=== PATIENT | male | born 1975 | race Caucasian/White ===

== ENCOUNTER 2020-09-30 09:34 | Emergency (ER) | payer BC, OTHER ==
--- NOTE | 2020-09-30 09:38 | EDM.PDOC ---
ED HPI GENERAL MEDICAL PROBLEM - General Stated Complaint: [id number] SOMETHING WRONG WITH STOMACH Time Seen by Provider: 09/30/20 10:00 Source of Information: Reports: Patient, RN, RN Notes Reviewed History Limitations: Reports: No Limitations - History of Present Illness INITIAL COMMENTS - FREE TEXT/NARRATIVE: Chelle is a 45 y/o male who presents to the ED via personal vehicle with complaints of LLQ abdominal pain. The patient reports his pain began abruptly approximately 45 minutes ago and has maintained in severity over that time. He characterizes the pain as a burning/stabbing that is localized to the LLQ. He states he experienced pain similar to this one a plane approximately one year ago; it resolved after one hour and he did not receive evaluation after the pain. He denies fever, shaking chills, nausea, vomiting, constipation, diarrhea, dysuria, or hematuria. He reports the pain increases with deep breaths. He has taken no medications for his symptoms. The patient attests to drinking alcohol and chewing tobacco; he denies recreational drug use. The patient reports he underwent a colonoscopy about four years ago for rectal bleeding (hemorrhoids) and chronic diarrhea; polyps were removed but no pathology was noted. left abdomen Pain Score (Numeric/FACES): 9 - Related Data Allergies Allergy/AdvReac Type Severity Reaction Status Date / Time No Known Allergies Allergy Verified 09/30/20 10:17 Home Meds: Home Meds . [No Known Home Meds] 09/30/20 [History] ED ROS GENERAL - Review of Systems Review Of Systems: Comprehensive ROS is negative, except as noted in HPI. ED EXAM, GI/ABD - Physical Exam Exam: See Below Exam Limited By: No Limitations General Appearance: Alert, Moderate Distress (Pain to LLQ), Thin Eyes: Bilateral: Normal Appearance, EOMI Ears: Normal External Exam, Hearing Grossly Normal Nose: Normal Inspection, Normal Mucosa, No Blood Throat/Mouth: Normal Inspection, Normal Oropharynx, Normal Voice, No Airway Compromise Head: Atraumatic, Normocephalic Neck: Normal Inspection, Supple, Non-Tender, Full Range of Motion Respiratory/Chest: No Respiratory Distress, Lungs Clear, Normal Breath Sounds, No Accessory Muscle Use, Chest Non-Tender Cardiovascular: Normal Peripheral Pulses, Regular Rate, Rhythm, No Edema, No Gallop, No JVD, No Murmur, No Rub GI/Abdominal Exam: Soft, No Distention, No Abnormal Bruit, No Mass, Pelvis Stable, Guarding, Tender (To palpation of all quadrants, but more to LLQ), Abnormal Bowel Sounds (Hyperactive bowel sounds). No: Rigid, Rebound (Male) Exam: Deferred Rectal (Males) Exam: Deferred Back Exam: Normal Inspection, Full Range of Motion. No: CVA Tenderness (L), CVA Tenderness (R) Extremities: Normal Inspection, Normal Range of Motion, Non-Tender, Normal Capillary Refill, No Pedal Edema Neurological: Alert, Oriented, CN II-XII Intact, Normal Cognition, Normal Gait, No Motor/Sensory Deficits Psychiatric: Anxious. No: Tearful Skin Exam: Warm, Dry, Intact, Normal Color, No Rash. No: Cyanosis, Diaphoretic, Ecchymosis, Erythema, Jaundice, Mottled, Pallor, Petechiae Course - Vital Signs Last Recorded V/S: Last Vital Signs Temp 96.3 F L 09/30/20 09:42 Pulse 98 09/30/20 09:42 Resp 20 09/30/20 09:42 BP 163/110 H 09/30/20 09:42 Pulse Ox 100 09/30/20 09:42 - Orders/Labs/Meds Labs: Laboratory Tests 09/30/20 09/30/20 09/30/20 Range/Units 09:54 09:54 09:54 WBC 8.4 (5.0-10.0) 10^3/uL RBC 5.80 (4.6-6.2) 10^6/uL Hgb 17.1 (14.0-18.0) g/dL Hct 49.9 (40.0-54.0) % MCV 86.0 (80-100) fL MCH 29.5 (27.0-34.0) pg MCHC 34.3 (33.0-35.0) g/dL Plt Count 302 (150-450) 10^3/uL Neut % (Auto) 57.8 (42.2-75.2) % Lymph % (Auto) 30.9 (20.5-50.1) % [place] % (Auto) 8.4 H (2-8) % Eos % (Auto) 2.3 (1.0-3.0) % Baso % (Auto) 0.6 (0.0-1.0) % Sodium 148 H (136-145) mmol/L Potassium 3.8 (3.5-5.1) mmol/L Chloride 107 (98-107) mmol/L Carbon Dioxide 27 (21-32) mmol/L Anion Gap 17.8 H (7-13) mEq/L BUN 11 (7-18) mg/dL Creatinine 0.96 (0.70-1.30) mg/dL Est Cr Clr Drug Dosing 98.19 mL/min Estimated GFR (MDRD) > 60 BUN/Creatinine Ratio 11.5 (No establ ref range) Glucose 117 H (70-99) mg/dL Lactic Acid 2.1 H* (0.4-2.0) mmol/L Calcium 8.8 (8.5-10.1) mg/dL Total Bilirubin 1.0 (0.2-1.0) mg/dL AST 19 (15-37) U/L ALT 27 (16-63) U/L Alkaline Phosphatase 61 (46-116) U/L C-Reactive Protein < 0.2 (0.0-0.9) mg/dL Total Protein 7.2 (6.4-8.2) g/dL Albumin 3.8 (3.4-5.0) g/dL Globulin 3.4 Albumin/Globulin Ratio 1.1 Amylase 20 L (25-115) U/L Lipase 89 (73-393) U/L Urine Color (YELLOW) Urine Appearance (CLEAR) Urine pH (5.0-9.0) Ur Specific [place] (1.005-1.030) Urine Protein (NEGATIVE) Urine Glucose (UA) (NEGATIVE) Urine Ketones (NEGATIVE) Urine Occult Blood (NEGATIVE) Urine Nitrite (NEGATIVE) Urine Bilirubin (NEGATIVE) Urine Urobilinogen (0.2-1.0) mg/dL Ur Leukocyte Esterase (NEGATIVE) U Hyaline Cast (Auto) Urine RBC (0-5) /HPF Urine WBC (0-5/HPF) /HPF Ur Epithelial Cells (NOT SEEN) /HPF Urine Mucus (NOT SEEN) /LPF Urine Opiates Screen (NEGATIVE) Ur Oxycodone Screen (NEGATIVE) Urine Methadone Screen (NEGATIVE) Ur Barbiturates Screen (NEGATIVE) U Tricyclic Antidepress (NEGATIVE) Ur Phencyclidine Scrn (NEGATIVE) Ur Amphetamine Screen (NEGATIVE) U Methamphetamines Scrn (NEGATIVE) Urine MDMA Screen (NEGATIVE) U Benzodiazepines Scrn (NEGATIVE) Urine Cocaine Screen (NEGATIVE) U Marijuana (THC) Screen (NEGATIVE) Ethyl Alcohol 20 (0) mg/dL 09/30/20 09/30/20 Range/Units 10:50 10:50 WBC (5.0-10.0) 10^3/uL RBC (4.6-6.2) 10^6/uL Hgb (14.0-18.0) g/dL Hct (40.0-54.0) % MCV (80-100) fL MCH (27.0-34.0) pg MCHC (33.0-35.0) g/dL Plt Count (150-450) 10^3/uL Neut % (Auto) (42.2-75.2) % Lymph % (Auto) (20.5-50.1) % [place] % (Auto) (2-8) % Eos % (Auto) (1.0-3.0) % Baso % (Auto) (0.0-1.0) % Sodium (136-145) mmol/L Potassium (3.5-5.1) mmol/L Chloride (98-107) mmol/L Carbon Dioxide (21-32) mmol/L Anion Gap (7-13) mEq/L BUN (7-18) mg/dL Creatinine (0.70-1.30) mg/dL Est Cr Clr Drug Dosing mL/min Estimated GFR (MDRD) BUN/Creatinine Ratio (No establ ref range) Glucose (70-99) mg/dL Lactic Acid (0.4-2.0) mmol/L Calcium (8.5-10.1) mg/dL Total Bilirubin (0.2-1.0) mg/dL AST (15-37) U/L ALT (16-63) U/L Alkaline Phosphatase (46-116) U/L C-Reactive Protein (0.0-0.9) mg/dL Total Protein (6.4-8.2) g/dL Albumin (3.4-5.0) g/dL Globulin Albumin/Globulin Ratio Amylase (25-115) U/L Lipase (73-393) U/L Urine Color Yellow (YELLOW) Urine Appearance Clear (CLEAR) Urine pH 6.0 (5.0-9.0) Ur Specific [place] 1.025 (1.005-1.030) Urine Protein Negative (NEGATIVE) Urine Glucose (UA) Negative (NEGATIVE) Urine Ketones Negative (NEGATIVE) Urine Occult Blood Moderate H (NEGATIVE) Urine Nitrite Negative (NEGATIVE) Urine Bilirubin Negative (NEGATIVE) Urine Urobilinogen 0.2 (0.2-1.0) mg/dL Ur Leukocyte Esterase Negative (NEGATIVE) U Hyaline Cast (Auto) Few Urine RBC 20-30 H (0-5) /HPF Urine WBC 0-5 (0-5/HPF) /HPF Ur Epithelial Cells Rare (NOT SEEN) /HPF Urine Mucus Moderate H (NOT SEEN) /LPF Urine Opiates Screen Negative (NEGATIVE) Ur Oxycodone Screen Negative (NEGATIVE) Urine Methadone Screen Negative (NEGATIVE) Ur Barbiturates Screen Negative (NEGATIVE) U Tricyclic Antidepress Negative (NEGATIVE) Ur Phencyclidine Scrn Negative (NEGATIVE) Ur Amphetamine Screen Negative (NEGATIVE) U Methamphetamines Scrn Negative (NEGATIVE) Urine MDMA Screen Negative (NEGATIVE) U Benzodiazepines Scrn Negative (NEGATIVE) Urine Cocaine Screen Negative (NEGATIVE) U Marijuana (THC) Screen Negative (NEGATIVE) Ethyl Alcohol (0) mg/dL Meds: Medications Discontinued Medications Generic Name Dose Route Start Last Admin Trade Name Freq PRN Reason Stop Dose Admin Hydromorphone HCl 1 mg 09/30/20 09:49 09/30/20 10:01 Hydromorphone 1 Mg/Ml Syringe IVPUSH 09/30/20 09:50 1 mg ONETIME ONE Administration Lactated Ringer's 1,000 mls @ 999 mls/hr 09/30/20 09:49 09/30/20 11:30 Ringers, Lactated IV 09/30/20 10:49 Infused .BOLUS ONE Infusion Iopamidol 100 ml 09/30/20 10:37 09/30/20 11:17 Iopamidol 612 Mg/Ml 100 Ml Bottle IVPUSH 09/30/20 10:38 75 ml ONETIME ONE Administration Ketorolac Tromethamine 30 mg 09/30/20 12:27 09/30/20 12:33 Ketorolac 30 Mg/Ml Sdv IVPUSH 09/30/20 12:28 30 mg ONETIME ONE Administration Tamsulosin HCl 0.4 mg 09/30/20 12:27 09/30/20 12:33 Tamsulosin 0.4 Mg Cap.Er PO 09/30/20 12:28 0.4 mg ONETIME ONE Administration - Radiology Interpretation Free Text/Narrative:: [facility] Final Radiology Report Call: [phone] assistance Online chat: [email or web address] Name: CHELLE WILKS Age: 45Years M Date: 09/30/2020 SSN: -- : [id number] Study: CT ABDOMEN PELVIS W CONT Requesting Physician: Modesta Carmichael Images: [id number] Addl Studies: Provided Clinical History: Severe pain to LLQ; Abrupt onset; Lactic 2.5 Contrast: With Contrast Medium: isovue 300 Contrast Amount: 75 mL Contrast Method: Intravenous (IV) Page 1 of 2 PROCEDURE INFORMATION: Exam: CT Abdomen And Pelvis With Contrast Exam date and time: 09/30/2020 10:56 AM Age: 45 years old Clinical indication: Abdominal pain; Localized; Left lower quadrant (llq); Prior surgery; Surgery date: 6+ months; Surgery type: Appendix removed; Additional info: Severe pain to llq; Abrupt onset; Lactic 2.5 TECHNIQUE: Imaging protocol: Computed tomography of the abdomen and pelvis with contrast. Radiation optimization: All CT scans at this facility use at least one of these dose optimization techniques: automated exposure control; mA and/or kV adjustment per patient size (includes targeted exams where dose is matched to clinical indication); or iterative reconstruction. Contrast material: ISOVUE 300; Contrast volume: 75 ml; Contrast route: INTRAVENOUS (IV); COMPARISON: No relevant prior studies available. FINDINGS: Lungs: Mild dependent changes are present in the lung bases. Liver: Normal. No mass. Gallbladder and bile ducts: Normal. No calcified stones. No ductal dilation. Pancreas: Normal. No ductal dilation. Spleen: Normal. No splenomegaly. Adrenal glands: Normal. No mass. Kidneys and ureters: Mild left perinephric stranding and hydronephrosis secondary to a 5.5 x 4 mm calculus located approximately 1 cm proximal to the left ureterovesical junction. Stomach and bowel: Unremarkable. No obstruction. No mucosal thickening. Appendix: Provided history of appendectomy. Intraperitoneal space: Unremarkable. No free air. No significant fluid collection. Vasculature: Unremarkable. No abdominal aortic aneurysm. Lymph nodes: Unremarkable. No enlarged lymph nodes. Urinary bladder: Unremarkable as visualized. Reproductive: Unremarkable as visualized. Bones/joints: Unremarkable. No acute fracture. Soft tissues: Unremarkable. IMPRESSION: Mild left perinephric stranding and hydronephrosis secondary to a 5.5 x 4 mm calculus located approximately 1 cm proximal to the left ureterovesical junction. Remainder of findings as described above. Thank you for allowing us to participate in the care of your patient. Dictated and Authenticated by: Jackelyn Lucio MD 09/30/2020 12:24 PM Central Time ([place] & [place]) - Re-Assessments/Exams Free Text/Narrative Re-Assessment/Exam: 09/30/20 LR 1L bolus initiated. Dilaudid 1mg administered. Labs pending. CT abdomen/pelvis obtained. CT remarkable for L renal calculus in the distal ureter with mild hydronephrosis. Ketorolac 30mg IVP and Flomax 0.4mg administered. Findings of examination, lab work, and imaging reviewed with patient. Will treat left kidney stone with Flomax, Toradol, Percocet, and Zofran ODT. Discussed supportive cares as well as red flag signs and symptoms which would warrant reevaluation reviewed. Patient instructed to follow up with primary care provider. Patient verbalized understanding and agreement with the plan of care. Departure - Departure Time of Disposition: 12:40 Disposition: Home, Self-Care 01 Condition: Fair Clinical Impression: Left renal stone, Hydronephrosis, left Hematuria Qualifiers: Hematuria type: other microscopic Qualified Code(s): R31.29 - Other microscopic hematuria - Discharge Information *PRESCRIPTION DRUG MONITORING PROGRAM REVIEWED*: Not Applicable *COPY OF PRESCRIPTION DRUG MONITORING REPORT IN PATIENT MARK: Not Applicable Instructions: Low-Purine Eating Plan, Kidney Stones Referrals: PCP,Not In Area [Primary Care Provider] - Forms: ED Department Discharge Additional Instructions: Rx: Flomax Rx: Zofran ODT Rx: Toradol Rx: Percocet 1.) Drink plenty of water to keep kidneys flushed out. 2.) Eat small frequent meals to avoid nausea. 3.) Use Percocet for break through pain. 4.) Follow up with your primary care provider regarding today's visit.
[2020-09-30] MEDS ORDERED: Lactated Ringers 1,000 ML IV ONE (09:49)
[2020-09-30] MEDS ORDERED: HYDROmorphone 1 MG/ML Syringe IVPUSH ONE (09:49)
[2020-09-30 10:18] LABS: ANION GAP 17.8 mEq/L (7-13); CHLORIDE,CL 107 mmol/L (98-107); SODIUM,NA 148 mmol/L (136-145)
[2020-09-30] MEDS ORDERED: Iopamidol 612 MG/ML 100 ML Bottle IVPUSH ONE (10:37)
[2020-09-30 10:59] LABS: AMPHETAMINES,URINE NEGATIVE (NEGATIVE); BARBITURATES,URINE NEGATIVE (NEGATIVE); BENZODIAZEPINE,URINE NEGATIVE (NEGATIVE); MDMA (ECSTASY), URINE NEGATIVE (NEGATIVE); METHADONE,URINE NEGATIVE (NEGATIVE); METHAMPHETAMINES,URINE NEGATIVE (NEGATIVE); OPIATES,URINE NEGATIVE (NEGATIVE); OXYCODONE,URINE NEGATIVE (NEGATIVE); PHENCYCLIDINE,URINE NEGATIVE (NEGATIVE); TCA,URINE NEGATIVE (NEGATIVE)
--- NOTE | 2020-09-30 12:25 | CT ---
PROCEDURE INFORMATION: Exam: CT Abdomen And Pelvis With Contrast Exam date and time: 09/30/2020 10:56 AM Age: 45 years old Clinical indication: Abdominal pain; Localized; Left lower quadrant (llq); Prior surgery; Surgery date: 6+ months; Surgery type: Appendix removed; Additional info: Severe pain to llq; Abrupt onset; Lactic 2.5 TECHNIQUE: Imaging protocol: Computed tomography of the abdomen and pelvis with contrast. Radiation optimization: All CT scans at this facility use at least one of these dose optimization techniques: automated exposure control; mA and/or kV adjustment per patient size (includes targeted exams where dose is matched to clinical indication); or iterative reconstruction. Contrast material: ISOVUE 300; Contrast volume: 75 ml; Contrast route: INTRAVENOUS (IV); COMPARISON: No relevant prior studies available. FINDINGS: Lungs: Mild dependent changes are present in the lung bases. Liver: Normal. No mass. Gallbladder and bile ducts: Normal. No calcified stones. No ductal dilation. Pancreas: Normal. No ductal dilation. Spleen: Normal. No splenomegaly. Adrenal glands: Normal. No mass. Kidneys and ureters: Mild left perinephric stranding and hydronephrosis secondary to a 5.5 x 4 mm calculus located approximately 1 cm proximal to the left ureterovesical junction. Stomach and bowel: Unremarkable. No obstruction. No mucosal thickening. Appendix: Provided history of appendectomy. Intraperitoneal space: Unremarkable. No free air. No significant fluid collection. Vasculature: Unremarkable. No abdominal aortic aneurysm. Lymph nodes: Unremarkable. No enlarged lymph nodes. Urinary bladder: Unremarkable as visualized. Reproductive: Unremarkable as visualized. Bones/joints: Unremarkable. No acute fracture. Soft tissues: Unremarkable. IMPRESSION: Mild left perinephric stranding and hydronephrosis secondary to a 5.5 x 4 mm calculus located approximately 1 cm proximal to the left ureterovesical junction. Remainder of findings as described above.
[2020-09-30] MEDS ORDERED: Ketorolac 30 MG/ML SDV IVPUSH ONE (12:27)
[2020-09-30] MEDS ORDERED: Tamsulosin 0.4 MG Cap.ER PO ONE (12:27)
== END 2020-09-30 12:55 | disposition home or self-care (01) ==
LOC: DL.ED 09:34
DX: N13.2 Hydronephrosis with renal and ureteral calculous obstruction (principal); F17.220 Nicotine dependence, chewing tobacco, uncomplicated
CPT/HCPCS: 36415; 74177; 80053; 80305-QW; 80307; 81001; 82150; 83605; 83690; 85025; 86140; 96374; 96375; 99284-25; A9270-GY; J1170; J1885; J7120; Q9967